=== PATIENT | female | born 1955 | race Caucasian/White ===

== ENCOUNTER 2022-01-11 17:04 | Emergency (ER) | payer BC, OTHER ==
[2022-01-11] MEDS ORDERED: Iopamidol 755 Mg/ML 75 ML Bottle IV ONE (18:32)
[2022-01-11] MEDS ORDERED: Morphine 2 MG/ML SYRINGE IVPUSH STA (18:36)
[2022-01-11] MEDS: Sodium Chloride 0.9% 10 ML Syringe FLUSH PRN ×2 (18:41→19:23)
[2022-01-11] MEDS ORDERED: Morphine 2 MG/ML SYRINGE IVPUSH ONE (19:19)
[2022-01-11] MEDS ORDERED: Sodium Chloride 0.9% 1,000 ML IV SCH ×2 (19:30→21:00)
[2022-01-11] MEDS ORDERED: LORazepam 2 MG/ML SDV IVPUSH STA (19:40)
== END 2022-01-11 20:55 ==
LOC: FB.ED 17:04
DX: K43.9 Ventral hernia without obstruction or gangrene (principal); K59.00 Constipation, unspecified; K56.609 Unspecified intestinal obstruction, unspecified as to partial versus complete obstruction
CPT/HCPCS: 36415; 74177; 80053; 81001; 82150; 83605; 83690; 85025; 87086; 87088; 87186; 96374; 96375; 96376; 99284; 99285-25; J2060; J2270; J3490; J7030; Q9967

== ENCOUNTER 2024-05-21 08:51 | Day surgery (SDC) | payer MEDICARE, BC ==
[2024-05-21] MEDS ORDERED: fentaNYL 100 MCG/2 ML SDV IV ONE (08:52)
[2024-05-21] MEDS ORDERED: Midazolam 1 MG/ML 2 ML SDV IV ONE (08:52)
[2024-05-21] MEDS ORDERED: Sodium Chloride 0.9% 10 ML Syringe IV ONE (08:52)
[2024-05-21] MEDS ORDERED: Lactated Ringers 1,000 ML IV PRN (09:00)
[2024-05-21] MEDS: Sodium Chloride 0.9% 10 ML Syringe FLUSH PRN (09:50)
[2024-05-21] MEDS: acetaZOLAMIDE 500 MG Cap.ER PO ONE (10:43)
== END 2024-05-21 11:26 | disposition home or self-care (01) ==
LOC: FB.SDS 08:51
PROVIDERS: ATTEND Ophthalmology
DX: H26.9 Unspecified cataract (principal); E66.9 Obesity, unspecified; F41.8 Other specified anxiety disorders
CPT/HCPCS: 00142; A9270-GY; J2250; J3010; J3490; V2632

== ENCOUNTER 2024-06-18 06:55 | Day surgery (SDC) | payer MEDICARE, BC ==
[2024-06-18] MEDS ORDERED: fentaNYL 100 MCG/2 ML SDV IV ONE (06:56)
[2024-06-18] MEDS ORDERED: Midazolam 1 MG/ML 2 ML SDV IV ONE (06:56)
[2024-06-18] MEDS ORDERED: Sodium Chloride 0.9% 10 ML Syringe FLUSH PRN (07:00)
[2024-06-18] MEDS ORDERED: Lactated Ringers 1,000 ML IV PRN (07:00)
[2024-06-18] MEDS: acetaZOLAMIDE 500 MG Cap.ER PO ONE (08:58)
== END 2024-06-18 09:25 | disposition home or self-care (01) ==
LOC: FB.SDS 06:55
PROVIDERS: ATTEND Ophthalmology
DX: H26.9 Unspecified cataract (principal); F41.9 Anxiety disorder, unspecified; F33.9 Major depressive disorder, recurrent, unspecified; E66.9 Obesity, unspecified; Z79.899 Other long term (current) drug therapy; Z88.8 Allergy status to other drugs, medicaments and biological substances; Z68.31 Body mass index [BMI] 31.0-31.9, adult
CPT/HCPCS: 66984; A9270; J2250; J3010; V2632; 00142